=== PATIENT | female | born 1995 | race American Indian/Alaskan Native ===

== ENCOUNTER 2020-03-22 13:01 | Emergency (ER) | payer SELFPAY ==
[2020-03-22 13:47] VITALS: BP 134/92
--- NOTE | 2020-03-22 14:30 | Event Note ---
ED Screening Note Date of service: 03/22/20 Time: 14:29 ED Screening Note: Complains of chest pain, shortness of breath, and sore throat Pain worsens in chest with deep inhalation This initial assessment/diagnostic orders/clinical plan/treatment(s) is/are subject to change based on patients health status, clinical progression and re- assessment by fellow clinical providers in the ED. Further treatment and workup at subsequent clinical providers discretion. Patient/guardian urged not to elope from the ED as their condition may be serious if not clinically assessed and managed. Initial orders include: Labs Chest x-ray
[2020-03-22 14:55] LABS: Basophils % (Auto) 0.7 % (0.0-1.8); Eosinophils # (Auto) 0.1 K/mm3 (0.0-0.4); Eosinophils % (Auto) 1.5 % (0.0-4.3); Hematocrit 38.9 % (30.3-42.9); Hemoglobin 12.9 gm/dl (10.1-14.3); Lymphocytes # (Auto) 2.3 K/mm3 (1.2-5.4); Lymphocytes % (Auto) 34.1 % (13.4-35.0); Mean Corpuscular HGB Conc 33 % (30-34); Mean Corpuscular Volume 91 fl (79-97); Monocytes # (Auto) 0.7 K/mm3 (0.0-0.8); Monocytes % (Auto) 10.4 % (0.0-7.3); Platelet Count 345 K/mm3 (140-440); Red Blood Count 4.28 M/mm3 (3.65-5.03); Red Cell Distribution Width 14.7 % (13.2-15.2)
[2020-03-22 15:07] LABS: Erythrocyte Sedimentation Rate 17 mm/Hr (0-20)
[2020-03-22 15:19] LABS: Alanine Aminotransferase 15 units/L (7-56); Albumin 4.1 g/dL (3.9-5); Blood Urea Nitrogen 14 mg/dL (7-17); Calcium 9.1 mg/dL (8.4-10.2); Hemolysis Index 2
[2020-03-22 15:24] LABS: BUN/Creatinine Ratio 23
--- NOTE | 2020-03-22 15:35 | XRay Report ---
CHEST 2 VIEWS INDICATION / CLINICAL INFORMATION: chest pain, shortness of breath. COMPARISON: None available. FINDINGS: SUPPORT DEVICES: None. HEART / MEDIASTINUM: No significant abnormality. LUNGS / PLEURA: No significant pulmonary or pleural abnormality. No pneumothorax. ADDITIONAL FINDINGS: No significant additional findings. IMPRESSION: 1. No acute findings. Signer Name: Ashutosh Toribio MD Signed: 03/22/2020 3:30 PM Workstation Name: [id number]
--- NOTE | 2020-03-22 17:36 | Emergency Department Report ---
Minor Respiratory - HPI Chief Complaint: Sore Throat Stated Complaint: SHORTNESS OF BREATH/VOMITING/CP Time Seen by Provider: 03/22/20 13:46 Duration: 3 Days Pain Location: Throat, Chest Minor Respiratory: Yes Sore Throat, Yes Able to Tolerate Fluids, Yes Chest Pain, Yes Shortness of Breath, No Rhinorrhea, No Ear Pain, No Cough, No Sick Contacts, No Hemoptysis, No Fever Other History: The patient was evaluated in the emergency department for symptoms described in the history of present illness. He/she was evaluated in the context of the global COVID-19 pandemic, which necessitated consideration that the patient might be at risk for infection with the virus that causes COVID-19. Institutional protocols and algorithms that pertain to the evaluation of patients at risk for COVID-19 are in a state of rapid change based on information released by regulatory bodies including the CDC and federal and state organizations. These policies and algorithms were followed during the patient's care in the emergency department. Please note that these policies, procedures and recommendations changed on a rapid basis. 24-year-old obese female presents to the emergency room complaining of sore throat, headache, chest pain with deep breath shortness of breath nausea and vomiting for 3 days. Patient denies any sick contact. She denies any fever no chills. Patient is taking nothing for her symptoms. She denies any change in vision no ear pain no rhinorrhea no abdominal pain no dysuria no hematuria able to swallow. Denies any past medical history currently takes no medications on a daily basis and has no known drug allergies. ED Review of Systems ROS: Stated complaint: SHORTNESS OF BREATH/VOMITING/CP Other details as noted in HPI ED Past Medical Hx - Past Medical History Previous Medical History?: No - Social History Smoking Status: Never Smoker Substance Use Type: None Minor Respiratory Exam - Exam General: Vital signs noted. No distress. Alert and acting appropriately. HEENT: Yes Moist Mucous Membranes, No Pharyngeal Erythema, No Pharyngeal Exudates, No Rhinorrhea, No Conjuctival Injection, No Frontal Tenderness, No Maxillary Tenderness Ear: Neither EAC Pain, Neither EAC Discharge Neck: Yes Supple, No Adenopathy Lungs: Yes Good Air Exchange, No Wheezes, No Ronchi, No Stridor, No Cough, No Labored Respirations, No Retractions, No Use of Accessory Muscles, No Other Abnormal Lung Sounds Heart: Yes Regular, No Murmur Abdomen: Yes Normal Bowel Sounds, No Tenderness, No Peritoneal Signs Skin: No Rash, No Edema Neurologic: Alert and oriented, no deficits. Musculoskeletal: Unremarkable. ED Course Vital Signs 03/22/20 13:44 Temperature 97.9 F Pulse Rate 85 Respiratory 16 Rate Blood Pressure 134/92 O2 Sat by Pulse 96 Oximetry ED Medical Decision Making - Lab Data Result diagrams: 03/22/20 14:11 03/22/20 14:11 - Radiology Data Radiology results: report reviewed Patient: SIXTO CAMARGO MR#: [id number] : 1995 Acct:[id number] Age/Sex: 24 / F ADM Date: 03/22/20 Loc: ED Attending Dr: Ordering Physician: NANETTE SEO Date of Service: 03/22/20 Procedure(s): XR chest routine 2V Accession Number(s): [id number] cc: NANETTE SEO Fluoro Time In Minutes: CHEST 2 VIEWS INDICATION / CLINICAL INFORMATION: chest pain, shortness of breath. COMPARISON: None available. FINDINGS: SUPPORT DEVICES: None. HEART / MEDIASTINUM: No significant abnormality. LUNGS / PLEURA: No significant pulmonary or pleural abnormality. No pneumothorax. ADDITIONAL FINDINGS: No significant additional findings. IMPRESSION: 1. No acute findings. Signer Name: Ashutosh Toribio MD Signed: 03/22/2020 3:30 PM Workstation Name: [id number] Transcribed By: VIRIDIANA Dictated By: Ashutosh Toribio MD Electronically Authenticated By: Ashutosh Toribio MD Signed Date/Time: 03/22/20 153 DD/ 29 TD/TT: - Medical Decision Making 24-year-old obese female presents to the emergency room complaining of sore t hroat, headache, chest pain with deep breath shortness of breath nausea and vomiting for 3 days. Patient denies any sick contact. She denies any fever no chills. Patient is taking nothing for her symptoms. She denies any change in vision no ear pain no rhinorrhea no abdominal pain no dysuria no hematuria able to swallow. Denies any past medical history currently takes no medications on a daily basis and has no known drug allergies. Chest x-ray is negative labs are stable recommended she increase your potassium intake by eating bananas orange juice apricots. Take [id number] ibuprofen or Tylenol. Increase your water intake by 3 to 4 L daily. Follow-up with your primary care provider. Critical care attestation.: If time is entered above; I have spent that time in minutes in the direct care of this critically ill patient, excluding procedure time. ED Disposition Clinical Impression: Viral syndrome Disposition: DC-01 TO HOME OR SELFCARE Is pt being admited?: No Does the pt Need Aspirin: No Condition: Stable Additional Instructions: Your symptoms appear most consistent with a nonspecific viral syndrome. However, given this current pandemic, COVID-19 is in the differential of possibilities. Despite your previous negative COVID-19 test, I do recommend repeat outpatient Covid 19 testing. In the meantime, isolate/quarantine yourself and stay away from anyone who is elderly, immunocompromised or chronically ill. You can use ibuprofen every 6-8 hours and Tylenol every 4-8 hours, using the dosing on the back of the bottle, as needed for any fever or body aches. Return to the emergency department with any worsening of your symptoms, development of chest pain or shortness of breath, or with any acute distress. Be sure to increase your water intake by 4 L daily. Increase your potassium intake by eating bananas apricots orange juice papaya. Follow-up with your [facility] care provider I have listed 1 below for your convenience. Referrals: PRIMARY CARE, [Primary Care Provider] - 3-5 Days Forms: Work/School Release Form(ED)
== END 2020-03-22 20:42 | disposition home or self-care (01) ==
LOC: ED 13:01
DX: B34.9 Viral infection, unspecified (principal); Z79.899 Other long term (current) drug therapy
CPT/HCPCS: 36415; 71046; 80053; 84484; 84703; 85025; 85652; 93005